=== PATIENT | female | born 1950 | race Caucasian/White ===

== ENCOUNTER 2020-11-01 17:09 | Emergency (ER) | payer MEDICARE, OTHER ==
[~2020-11-01] VITALS: Ht 165.1 cm; Wt 105.1 kg
--- NOTE | 2020-11-01 17:19 | ED Dyspnea ---
General Stated Complaint: SOA History of Present Illness Date Seen by Provider: Nov 01, 2020 Time Seen by Provider: 17:14 Initial Comments 69-year-old female presents with pain along her diaphragm/chest wall. Patient reports that she has COPD and has been having some dyspnea symptoms for about a month. That she was seen 2 days ago by her primary care and started on Levaquin so today is day 3. Along with steroids for COPD. She used inhaler couple hours ago. That she has significant pain when she takes a deep breath. Little bit of chest pressure. Wheezing. No reports of fever. She has had Covid vaccine x2. Allergies and Home Medications Allergies Coded Allergies: No Known Drug Allergies (Unverified , 11/01/20) Home Medications Albuterol Sulfate 1 Puff Puff, 2 PUFF IH Q4H, (Reported) 1 PUFF = 90 MCG Bupropion HCl 150 Mg Tab.er.24h, 150 MG PO DAILY, (Reported) Citalopram Hydrobromide 40 Mg Tablet, 40 MG PO DAILY, (Reported) Levofloxacin 500 Mg Tablet, 500 MG PO DAILY, (Reported) Lisinopril/Hydrochlorothiazide 1 Each Tablet, 1 TAB PO DAILY, (Reported) Simvastatin 40 Mg Tablet, 40 MG PO DAILY, (Reported) Patient Home Medication List Home Medication List Reviewed: Yes Review of Systems Review of Systems Constitutional: see HPI; No fever Respiratory: cough, short of breath Cardiovascular: chest pain; No palpitations Gastrointestinal: No abdominal pain, No nausea, No vomiting Musculoskeletal: no symptoms reported Skin: no symptoms reported Psychiatric/Neurological: No Symptoms Reported Endocrine: No Symptoms Reported Hematologic/Lymphatic: No Symptoms Reported Past Niwyddv-Irumfg-Ghlqrz Hx Past Med/Social Hx: Reviewed Nursing Past Med/Soc Hx Physical Exam Vital Signs Vital Signs - First Documented 11/01/20 17:10 Temp 37.1 Pulse 65 Resp 20 B/P (MAP) 149/89 (109) Pulse Ox 97 O2 Delivery Room Air Capillary Refill : Height, Weight, BMI Height: '" Weight: lbs. oz. 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 Norm as Tested Skin: Diaphoresis Focused Exam Lactate Level 11/01/20 18:05: Lactic Acid Level 1.35 Lactic Acid Level Laboratory Tests Test 11/01/20 18:05 Lactic Acid Level 1.35 MMOL/L (0.50-2.00) Progress/Results/Core Measures Results/Orders Lab Results Laboratory Tests Test 11/01/20 17:20 11/01/20 18:05 Range/Units White Blood Count 22.4 H 4.3-11.0 10^3/uL Red Blood Count 5.28 4.35-5.85 10^6/uL Hemoglobin 16.0 11.5-16.0 G/DL Hematocrit 46 35-52 % Mean Corpuscular Volume 88 80-99 FL Mean Corpuscular Hemoglobin 30 25-34 PG Mean Corpuscular Hemoglobin Concent 35 32-36 G/DL Red Cell Distribution Width 14.1 10.0-14.5 % Platelet Count 256 130-400 10^3/uL Mean Platelet Volume 10.0 7.4-10.4 FL Immature Granulocyte % (Auto) 0 % Neutrophils (%) (Auto) 69 42-75 % Lymphocytes (%) (Auto) 23 12-44 % Monocytes (%) (Auto) 7 0-12 % Eosinophils (%) (Auto) 1 0-10 % Basophils (%) (Auto) 0 0-10 % Neutrophils # (Auto) 15.4 H 1.8-7.8 X 10^3 Lymphocytes # (Auto) 5.2 H 1.0-4.0 X 10^3 Monocytes # (Auto) 1.5 H 0.0-1.0 X 10^3 Eosinophils # (Auto) 0.2 0.0-0.3 10^3/uL Basophils # (Auto) 0.0 0.0-0.1 10^3/uL Immature Granulocyte # (Auto) 0.1 0.0-0.1 10^3/uL Neutrophils % (Manual) 69 % Lymphocytes % (Manual) 26 % Monocytes % (Manual) 4 % Eosinophils % (Manual) 0 % Basophils % (Manual) 1 % Band Neutrophils 0 % Sodium Level 139 135-145 MMOL/L Potassium Level 3.8 3.6-5.0 MMOL/L Chloride Level 103 98-107 MMOL/L Carbon Dioxide Level 24 21-32 MMOL/L Anion Gap 12 5-14 MMOL/L Blood Urea Nitrogen 23 H 7-18 MG/DL Creatinine 1.17 0.60-1.30 MG/DL Estimat Glomerular Filtration Rate 46 BUN/Creatinine Ratio 20 Glucose Level 149 H 70-105 MG/DL Calcium Level 9.4 8.5-10.1 MG/DL Corrected Calcium 9.1 8.5-10.1 MG/DL Magnesium Level 2.1 1.6-2.4 MG/DL Total Bilirubin 0.5 0.1-1.0 MG/DL Aspartate Amino Transf (AST/SGOT) 30 5-34 U/L Alanine Aminotransferase (ALT/SGPT) 20 0-55 U/L Alkaline Phosphatase 121 40-136 U/L Troponin I < 0.30 <0.30 NG/ML Pro-B-Type Natriuretic Peptide 163.0 H <75.0 PG/ML Total Protein 7.3 6.4-8.2 GM/DL Albumin 4.4 3.2-4.5 GM/DL Urine Color YELLOW Urine Clarity SLT CLOUDY Urine pH 6.0 5-9 Urine Specific [place] >=1.030 1.016-1.022 Urine Protein TRACE H NEGATIVE Urine Glucose (UA) NEGATIVE NEGATIVE Urine Ketones TRACE H NEGATIVE Urine Nitrite NEGATIVE NEGATIVE Urine Bilirubin 1+ H NEGATIVE Urine Urobilinogen 0.2 < = 1.0 MG/DL Urine Leukocyte Esterase 2+ H NEGATIVE Urine RBC (Auto) NEGATIVE NEGATIVE Urine RBC NONE /HPF Urine WBC 25-50 H /HPF Urine Squamous Epithelial Cells 5-10 /HPF Urine Crystals NONE /LPF Urine Bacteria TRACE /HPF Urine Casts PRESENT /LPF Urine Hyaline Casts RARE /LPF Urine Mucus SMALL H /LPF Urine Culture Indicated YES Lactic Acid Level 1.35 0.50-2.00 MMOL/L My Orders Orders - DOUGHERTY,DEANNA L DO Chest Pa/Lat (2 View) (11/01/20 17:20) Cbc With Automated Diff (11/01/20 17:20) Comprehensive Metabolic Panel (11/01/20 17:20) Magnesium (11/01/20 17:20) Probnp Fs (11/01/20 17:20) Albuterol/Ipra Inhalation Soln (Duoneb I (11/01/20 17:30) Svn Small Volume Nebulizer (11/01/20 17:20) Troponin I Fs (11/01/20 17:20) Ekg Tracing (11/01/20 17:20) Manual Differential (11/01/20 17:20) Lactic Acid Analyzer (11/01/20 18:03) Ua Culture If Indicated (11/01/20 18:03) Procalcitonin (Pct) (11/01/20 18:06) Ketorolac Injection (Toradol Injection) (11/01/20 18:06) Urine Culture (11/01/20 18:05) Ceftriaxone For Iv Use (Rocephin For I (11/01/20 18:45) Medications Given in ED Current Medications Medications Dose Ordered Sig/Chase Route Start Time Stop Time Status Last Admin Dose Admin Albuterol/ Ipratropium 3 ml ONCE ONCE INH 11/01/20 17:30 11/01/20 17:31 DC 11/01/20 17:25 3 ML Ceftriaxone Sodium 1000 mg/ Sterile Water 10 ml @ 200 mls/hr ONCE ONCE IV 11/01/20 18:45 11/01/20 18:47 DC 11/01/20 18:47 200 MLS/HR Vital Signs/I&O 11/01/20 17:10 Temp 37.1 Pulse 65 Resp 20 B/P (MAP) 149/89 (109) Pulse Ox 97 O2 Delivery Room Air Progress Progress Note : Time: 18:55 Progress Note Patient's breathing is improved with the DuoNeb. She is currently on Levaquin, steroids. She has elevated white count that is likely related to steroids along with a urinary tract infection. The Levaquin being broad-spectrum should cover for the UTI. Patient is on day 3 of a 10-day course. Patient stable and will be discharged home. I recommend she follow-up with her primary care provider after the weekend on Thursday for recheck of her symptoms. She should return to the ER as needed Initial ECG Impression Date: Nov 01, 2020 Initial ECG Impression Time: 17:17 Initial ECG Rate: 58 Initial ECG Rhythm: Normal Sinus Initial ECG Impression: Nonspecific Changes Diagnostic Imaging Diagonstic Imaging: Xray Plain Films/CT/US/NM/MRI: chest Comments [facility] [place], [place] NAME: JOCE BARGERValdez Mina [facility] REC#: [id number] PT STATUS: REG ER : 1950 PHYSICIAN: DEANNA DOUGHERTY DO ADMIT DATE: 11/01/20/ER FS Draft Date of Exam:11/01/20 CHEST PA/LAT (2 VIEW) INDICATION: Shortness of breath and history of COPD. COMPARISON: No prior examinations are available for comparison. FINDINGS: Heart size is normal. There is some air trapping, compatible with COPD. There is no pleural effusion, pneumothorax, or pneumonia. Mediastinum is unremarkable. IMPRESSION: 1. COPD. 2. No acute cardiopulmonary abnormality. Departure Impression Primary Impression: Urinary tract infection Qualified Codes: N30.00 - Acute cystitis without hematuria Additional Impression: COPD exacerbation Disposition: HOME, SELF-CARE Condition: Stable Departure-Patient Inst. Referrals: LOLITA FLORES MD (PCP/Family) Primary Care Physician Patient Instructions: COPD Exacerbation, Adult ED, How to Use Your Metered Dose Inhaler (Adults), Urinary Tract Infections in Adults Add. Discharge Instructions: Follow-up with your primary care provider on Thursday Return to the ER as needed Tylenol or ibuprofen as needed for fever or pain. Drink plenty of fluids DEANNA DOUGHERTY DO Nov 01, 2020 17:19
[2020-11-01 17:30] LABS: HEMATOCRIT 46 % (35-52); MEAN CORPUSCULAR HEMOGLOBIN 30 PG (25-34); MEAN CORPUSCULAR HGB CONC 35 G/DL (32-36); MEAN CORPUSCULAR VOLUME 88 FL (80-99); PLATELET COUNT 256 10^3/uL (130-400); WHITE BLOOD COUNT 22.4 10^3/uL (4.3-11.0)
[2020-11-01] MEDS ORDERED: RT-ALBUTEROL/IPRATROPIUM 3 ML (DUONEB) VIAL INH ONE (17:30)
[2020-11-01 17:31] LABS: BASOPHILS % (AUTO) 0 % (0-10); EOSINOPHILS % (AUTO) 1 % (0-10); LYMPHOCYTES % (AUTO) 23 % (12-44); MONOCYTES % (AUTO) 7 % (0-12); NEUTROPHILS % (AUTO) 69 % (42-75)
[2020-11-01 17:33] LABS: EOSINOPHILS # (AUTO) 0.2 10^3/uL (0.0-0.3); LYMPHOCYTES # (AUTO) 5.2 X 10^3 (1.0-4.0); MONOCYTES # (AUTO) 1.5 X 10^3 (0.0-1.0); NEUTROPHILS # (AUTO) 15.4 X 10^3 (1.8-7.8)
--- NOTE | 2020-11-01 17:41 | Diagnostic Imaging Report ---
INDICATION: Shortness of breath and history of COPD. COMPARISON: No prior examinations are available for comparison. FINDINGS: Heart size is normal. There is some air trapping, compatible with COPD. There is no pleural effusion, pneumothorax, or pneumonia. Mediastinum is unremarkable. IMPRESSION: 1. COPD. 2. No acute cardiopulmonary abnormality. Dictated by: Dictated on workstation # [id number]
[2020-11-01 17:47] LABS: BAND NEUTROPHILS 0 %; BASOPHILS % (MANUAL) 1 %; EOSINOPHILS % (MANUAL) 0 %; LYMPHOCYTES % (MANUAL) 26 %; MONOCYTES % (MANUAL) 4 %; NEUTROPHILS % (MANUAL) 69 %
[2020-11-01 18:00] LABS: ALANINE AMINOTRANSFERASE 20 U/L (0-55); ALKALINE PHOSPHATASE 121 U/L (40-136); BILIRUBIN,TOTAL 0.5 MG/DL (0.1-1.0); BUN/CREATININE RATIO 20; CALCIUM 9.4 MG/DL (8.5-10.1); CARBON DIOXIDE 24 MMOL/L (21-32); CHLORIDE 103 MMOL/L (98-107); CREATININE SERUM 1.17 MG/DL (0.60-1.30); GFR ESTIMATED 46; GLUCOSE 149 MG/DL (70-105); MAGNESIUM 2.1 MG/DL (1.6-2.4); POTASSIUM 3.8 MMOL/L (3.6-5.0); SODIUM 139 MMOL/L (135-145)
[2020-11-01 18:01] LABS: ALBUMIN 4.4 GM/DL (3.2-4.5); TOTAL PROTEIN 7.3 GM/DL (6.4-8.2)
[2020-11-01] MEDS ORDERED: KETOROLAC 30 MG/ML VIAL IVP STA (18:06)
[2020-11-01 18:27] LABS: COLOR,URINE YELLOW
[2020-11-01 18:28] LABS: CLARITY,URINE SLT CLOUDY
[2020-11-01 18:34] LABS: GLUCOSE, URINE (UA) NEGATIVE (NEGATIVE); PROTEIN,URINE TRACE (NEGATIVE)
[2020-11-01 18:35] LABS: BACTERIA,URINE TRACE /HPF; BILIRUBIN,URINE 1+ (NEGATIVE); KETONES,URINE TRACE (NEGATIVE); LEUKOCYTE ESTERASE ,URINE 2+ (NEGATIVE); NITRITE,URINE NEGATIVE (NEGATIVE); WBC,URINE 25-50 /HPF
[2020-11-01 18:36] LABS: HYALINE CASTS, URINE RARE /LPF
[2020-11-01] MEDS ORDERED: LEVO500T80 PO (18:41)
[2020-11-01] MEDS ORDERED: Advair (18:41)
[2020-11-01] MEDS ORDERED: LISI1TAB46 PO (18:41)
[2020-11-01] MEDS ORDERED: SIMV40TA25 PO (18:41)
[2020-11-01] MEDS ORDERED: CITA40TA11 PO (18:41)
[2020-11-01] MEDS ORDERED: BUPR150T24 PO (18:41)
[2020-11-01] MEDS ORDERED: RT-ALBUINH IH (18:41)
[2020-11-01] MEDS ORDERED: cefTRIAXone FOR IV USE 1,000 MG in WATER (STERILE) FOR INJECTION 10 ML IV ONE (18:45)
[2020-11-01 19:00] VITALS: BP 125/71
== END 2020-11-01 19:00 | disposition home or self-care (01) ==
LOC: ER FS 17:11
DX: J44.1 Chronic obstructive pulmonary disease with (acute) exacerbation (principal); N30.00 Acute cystitis without hematuria
CPT/HCPCS: 36415; 71046; 80053; 81000; 83605; 83735; 83880; 84145; 84484; 85007; 85027; 87088; 93005; 94640

== ENCOUNTER 2021-03-20 05:31 | Outpatient (CLI) | payer MEDICARE, OTHER ==
[~2021-03-20] VITALS: Ht 165.1 cm; Wt 104.5 kg
[~2021-03-20 05:31] MED LIST: Advair; BUPR150T24 PO; CITA40TA11 PO; LEVO500T80 PO; LISI1TAB46 PO; RT-ALBUINH IH; SIMV40TA25 PO
[2021-03-20] MEDS ORDERED: IBUP-1779 PO (09:57)
[2021-03-20] MEDS ORDERED: ALBU2.5V4 INH (09:57)
[2021-03-20] MEDS ORDERED: CETI10TA17 PO (09:57)
== END 2021-03-20 10:18 ==
LOC: PREOP 05:31
PROVIDERS: ATTEND Orthopaedic Surgery
DX: Z01.818 Encounter for other preprocedural examination (principal)

== ENCOUNTER 2021-03-27 07:52 | Day surgery (SDC) | payer MEDICARE, OTHER ==
--- NOTE | 2021-03-19 13:57 | HISTORY AND PHYSICAL ---
DATE OF SERVICE: ADMISSION HISTORY AND PHYSICAL This will be for outpatient surgery on 03/27/2021 for right knee arthroscopy. HISTORY OF PRESENT ILLNESS: The patient is a 70-year-old female with progressively worsening right knee pain. She underwent an MRI, which shows posterior horn medial and lateral meniscus tears. She has undergone treatment with injections with only temporary relief of her symptoms. Due to functional impairment and failure to improve with conservative measures, the patient elected to proceed with surgical intervention. REVIEW OF SYSTEMS: No chest pain, no shortness of breath, no dysuria. PAST MEDICAL HISTORY: COPD, asthma, hypertension, peripheral artery disease, type 2 diabetes, chronic kidney disease, depression. PAST SURGICAL HISTORY: Bilateral carpal tunnel, right knee arthroscopy, hysterectomy. FAMILY HISTORY: Noncontributory. PRIMARY CARE PROVIDER: Dr. Germain. MEDICATIONS: Ibuprofen, bupropion, simvastatin, ProAir, lisinopril, citalopram, cetirizine, albuterol, and Advair. ALLERGIES: No known drug allergies. SOCIAL HISTORY: The patient denies tobacco or alcohol use. PHYSICAL EXAMINATION: GENERAL: The patient is well-developed, well-nourished, in no acute distress. HEENT: Normocephalic, atraumatic. Pupils are equal, round and reactive to light. Oropharynx is clear. NECK: Supple, no lymphadenopathy. LUNGS: Clear to auscultation bilaterally. HEART: Regular rate and rhythm. ABDOMEN: Soft, nontender, nondistended. EXTREMITIES: The right knee demonstrates tenderness along the posteromedial joint line. She has pain posteriorly with hyperflexion with Jada's. She has a slight effusion, no erythema or warmth. Range of motion is 0/130. The patient ambulates with an antalgic gait. 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 PLAN: Right knee arthroscopy with partial medial and lateral meniscectomies and chondroplasty. The risks, benefits, options, ramifications and recovery were discussed at length with the patient. She understands and wishes to proceed. Job ID: [id number] DocumentID: [id number] Dictated Date: 03/19/2021 12:38:42 Insurance Case Manager Date: 03/19/2021 12:57:31 Dictated By: LYNDON ROGERS MD
[2021-03-27] VITALS (10 sets, daily range): BP systolic 106–160; BP diastolic 48–79
[~2021-03-27] VITALS: Ht 165.1 cm; Wt 104.5 kg
[~2021-03-27 07:52] MED LIST changes: +ALBU2.5V4 INH; +CETI10TA17 PO; +HYDROcodone/APAP 7.5 MG/325 MG (LORTAB, LORCET PLUS) TABLET PO PRN; +IBUP-1779 PO
[2021-03-27] MEDS ORDERED: morphine PF (DURAMORPH) 10 MG/10 ML AMP ONE (08:21)
[2021-03-27] MEDS ORDERED: BUPIVACAINE 0.25% 30 ML (SENSORCAINE) VIAL ONE (08:21)
[2021-03-27] MEDS ORDERED: LIDOCAINE PF 2% 5 ML (XYLOCAINE) VIAL ONE (08:29)
[2021-03-27] MEDS ORDERED: proPOfol 200 MG/20 ML (DIPRIVAN) VIAL IV ONE (08:29)
[2021-03-27] MEDS ORDERED: ONDANSETRON 4 MG/2 ML (SDV) Z0FRAN ONE (08:29)
[2021-03-27] MEDS ORDERED: SEVOFLURANE (ULTANE) 15 ML INHAL SOLN ONE ×2 (08:29→09:44)
[2021-03-27] MEDS ORDERED: ceFAZolin INJECTION 1,000 MG in WATER (STERILE) FOR INJECTION 10 ML IV ONE (08:30)
[2021-03-27] MEDS ORDERED: MIDAZOLAM 2 MG/2 ML (VERSED) VIAL ONE (08:30)
[2021-03-27] MEDS ORDERED: fentaNYL INJ 100 MCG/2 ML AMP ONE (08:30)
[2021-03-27] MEDS: LACTATED RINGERS 1,000 ML IV PRN ×2 (08:55→10:25)
--- NOTE | 2021-03-27 09:35 | Progress Note-Pre Operative ---
Pre-Operative Progress Note H&P Reviewed The H&P was reviewed, patient examined and no changes noted. Date Seen by Provider: Mar 27, 2021 Time Seen by Provider: 09:25 Date H&P Reviewed: Mar 27, 2021 Time H&P Reviewed: 07:11 Pre-Operative Diagnosis: right knee medial and lateral meniscus tear and chondromalacia LYNDON ROGERS MD Mar 27, 2021 09:35
--- NOTE | 2021-03-27 09:36 | Progress Note-Post Operative ---
Post-Operative Progess Note Surgeon (s)/Packing Machine Tender (s) Surgeon LYNDON ROGERS MD Packing Machine Tender: Jaya Sanchez Pre-Operative Diagnosis right knee medial and lateral meniscus tear and chondromalacia Post-Operative Diagnosis right knee lateral meniscus tear and chondromalacia of the medial femoral condyle, medial tibial plateau, lateral tibial plateau and patella Procedure & Operative Findings Date of Procedure 03/27/21 Procedure Performed/Findings right knee arthroscopic partial lateral meniscectomy and chondroplasty of of the medial femoral condyle, medial tibial plateau, lateral tibial plateau and patella Anesthesia Type GETA Estimated Blood Loss Estimated blood loss (mL): minimal Specimens/Packing Specimens Removed none Packing: none LYNDON ROGERS MD Mar 27, 2021 09:36
--- NOTE | 2021-03-27 10:26 | Anesthesia-General Post-Op ---
General Patient Condition Mental Status/LOC: Same as Preop Cardiovascular: Satisfactory Nausea/Vomiting: Absent Respiratory: Satisfactory Pain: Controlled Complications: Absent Post Op Complications Complications None Follow Up Care/Instructions Patient Instructions None needed. Anesthesia/Patient Condition Patient Condition Patient is doing well, no complaints, stable vital signs, no apparent adverse anesthesia problems. No complications reported per nursing. EVELYN HANNAH CRNA Mar 27, 2021 10:26
[2021-03-27] MEDS ORDERED: fentaNYL INJ 100 MCG/2 ML AMP IVP ONE (10:30)
[2021-03-27] MEDS ORDERED: ONDANSETRON 4 MG/2 ML (SDV) Z0FRAN IVP PRN (10:30)
[2021-03-27] MEDS ORDERED: MEPERIDINE (DEMEROL) INJ 50 MG/ML IVP ONE (10:30)
[2021-03-27] MEDS ORDERED: morphine INJ 10 MG/ML 1ML (SYR OR VIAL) IVP ONE (10:30)
[2021-03-27] MEDS ORDERED: morphine INJ 10 MG/ML 1ML (SYR OR VIAL) ONE (10:39)
--- NOTE | 2021-03-27 13:13 | Physical Therapy Ortho Eval ---
PT Orthopedic Evaluation Type of Surgery Knee Scope Prior Level of Function Current Living Status: Significant Other Locomotion (Upon Admit): Independent Established Durable Medical Eq: Crutches Subjective Subjective Patient rates pain at 3/10 currently. Reports "Its not too bad." Entry Into Home: Stairs With Railing Steps Into Home: 2 ROM ROM: WFL, except focal deficit Strength Strength: Gen Weak,No Focal Deficit Transfer SCALE: Activities may be completed with or without assistive devices. 6-Hdhzshkyej-qwtpoup completes the activity by him/herself with no assistance from a helper. 5-Set-up or Clean-up Assistance-helper sets up or cleans up; patient completes activity. [place] assists only prior to or following the activity. 4-Supervision or Touching Assistance-helper provides verbal cues and/or touching/steadying and/or contact guard assistance as patient completes activity. Assistance may be provided throughout the activity or intermittently. 3-Partial/Moderate Assistance-helper does LESS THAN HALF the effort. [place] lifts, holds or supports trunk or limbs, but provides less than half the effort. 2-Substantial/Maximal Assistance-helper does MORE THAN HALF the effort. [place] lifts or holds trunk or limbs and provides more than half the effort. 7-Wyxbvhjsp-sdukfr does ALL the effort. Patient does none of the effort to complete the activity. Or, the assistance of 2 or more helpers is required for the patient to complete the activity. If activity was not attempted, code reason: 7-Patient Refused. 9-Not Applicable-not attempted and the patient did not perform the activity before the current illness, exacerbation or injury. 10-Not Attempted due to Environmental Limitations-(lack of equipment, weather restraints, etc.). 88-Not Attempted due to Medical Conditions or Safety Concerns. Transfers (B, C, W/C) (QC): 5 Gait Gait Assistive Device: Crutches Right Lower Extremity: Right Weight Bearing Status RLE: Weight Bearing/Tolerated Gait (QC): 4 Distance: 30 Gait Level of Assist: 4 Treatment Rendered Treatment: Therapeutic Exercises, Gait Train Exercise Instruction: Quad Sets, Straight Leg Raise, Heel Slides, Ankle Pumps Written HEP dispensed Assessment/Goals Goal Time Frame: 1 Visit Understands HEP: Yes Safe Ambulation: Yes Plan Treatment Plan: Discharge Time Time In: 1150 Time Out: 1215 Total Billed Treatment Time: 25 Billed Treatment Time Visit, Lorri Madsen JOHN A PT Mar 27, 2021 13:12
--- NOTE | 2021-03-27 14:35 | OPERATIVE REPORT ---
DATE OF SERVICE: 03/27/2021 PREOPERATIVE DIAGNOSES: 1. Right knee medial meniscus tear. 2. Right knee lateral meniscus tear. 3. Right knee chondromalacia of the medial femoral condyle. 4. Right knee chondromalacia of the patella. POSTOPERATIVE DIAGNOSES: 1. Right knee lateral meniscus tear. 2. Right knee chondromalacia of the medial femoral condyle. 3. Right knee chondromalacia of the medial tibial plateau. 4. Right knee chondromalacia of the lateral tibial plateau. 5. Right knee chondromalacia of the patella. PROCEDURES PERFORMED: 1. Right knee arthroscopic partial lateral meniscectomy. 2. Right knee arthroscopic chondroplasty of the medial femoral condyle. 3. Right knee arthroscopic chondroplasty of the medial tibial plateau. 4. Right knee arthroscopic chondroplasty of the lateral tibial plateau. 5. Right knee arthroscopic chondroplasty of the patella. SURGEON: Tal Rogers MD. PROCESS SAFETY ENGINEER: Jaya Sanchez, who assisted throughout the procedure and closed the incisions. ANESTHESIA: General endotracheal by Jaya Tobin CRNA. TOURNIQUET TIME: Not applicable. ESTIMATED BLOOD LOSS: Minimal. DRAINS: None. COMPLICATIONS: None. POSTOPERATIVE PLAN: Routine arthroscopy protocol. The patient was transferred to the recovery room awake and in stable condition. STATEMENT OF MEDICAL NECESSITY: The patient is a 70-year-old female with complaints of right medial and lateral knee pain, catching, locking and swelling. An MRI revealed evidence of a medial and lateral meniscus tear. She tried rest, activity modifications, and anti-inflammatories without relief. Due to functional impairment and failure to improve with conservative measures, the patient elected to proceed with surgical intervention. Examination under anesthesia revealed range of motion of 0/0/130 with negative Ivan, negative anterior and posterior drawer. No varus or valgus laxity, negative pivot shift. ARTHROSCOPIC FINDINGS: The patella demonstrated grade II chondral flaps centrally in a 10 x 10 area. The trochlea demonstrated no gross chondral abnormalities. Medial and lateral gutters were clear. The ACL and PCL were intact. The lateral compartment demonstrated complex tear of the posterior horn of the lateral meniscus involving approximately one-half of the posterior horn. In addition, there were grade III chondral flaps of the central portion of the tibial plateau in a 10 x 10 area. The medial compartment demonstrated grade II to III chondral flaps of the central portion of the tibial plateau in a 10 x 10 area and over the central portion of the femoral condyle in a 10 x 10 area. PROCEDURE IN DETAIL: After the risks and benefits of the procedure were discussed and questions were answered, informed consent was signed and placed on chart, the operative site was confirmed in the preoperative holding area initialed by the surgeon. The patient was then transferred to the operating room. After adequate levels of general endotracheal anesthetic were obtained, a timeout was called, confirming the operative site. Examination under anesthesia was performed with the above findings noted. The right lower extremity was prepped and draped in the usual sterile fashion. The knee joint was injected with 60 mL of fluid and standard inferolateral portal was placed for the arthroscope. Under direct visualization, inferior medial portal was created. The menisci and cruciates were carefully probed with the above findings noted. The unstable chondral flaps on the patella were debrided with a shaver back to a stable edge. The scope was then redirected into the lateral compartment and unstable chondral flaps on the lateral tibial plateau were debrided with a shaver back to a stable edge and the posterior horn of the lateral meniscus was debrided with a biter and a shaver back to a stable edge. Scope was then redirected into the medial compartment and the unstable chondral flaps of the medial femoral condyle and medial tibial plateau were debrided with a shaver back to a stable edge. Knee was copiously irrigated and portal sites were closed with 4-0 nylon in a simple interrupted fashion. Knee joint was injected with Duramorph. The port sites were infiltrated with plain Marcaine. A soft dressing was applied. The patient was transferred to the recovery room awake and in a stable condition. Job ID: [id number] DocumentID: [id number] Dictated Date: 03/27/2021 10:25:26 Education Faculty Member Date: 03/27/2021 14:34:08 Dictated By: TAL ROGERS MD
== END 2021-03-27 13:20 | disposition home or self-care (01) ==
LOC: SDC 07:52
PROVIDERS: ATTEND Orthopaedic Surgery
DX: S83.241A Other tear of medial meniscus, current injury, right knee, initial encounter (principal); S83.281A Other tear of lateral meniscus, current injury, right knee, initial encounter; M22.41 Chondromalacia patellae, right knee; E11.22 Type 2 diabetes mellitus with diabetic chronic kidney disease; E11.51 Type 2 diabetes mellitus with diabetic peripheral angiopathy without gangrene; F32.9 Major depressive disorder, single episode, unspecified; I12.9 Hypertensive chronic kidney disease with stage 1 through stage 4 chronic kidney disease, or unspecified chronic kidney disease; N18.9 Chronic kidney disease, unspecified; J44.9 Chronic obstructive pulmonary disease, unspecified; Z79.899 Other long term (current) drug therapy; Z79.1 Long term (current) use of non-steroidal anti-inflammatories (NSAID); Z98.890 Other specified postprocedural states
CPT/HCPCS: 82947; 87081

== ENCOUNTER 2021-06-06 05:42 | Outpatient (CLI) | payer MEDICARE, OTHER ==
[~2021-06-06] VITALS: Ht 165.6 cm; Wt 107.5 kg
[~2021-06-06 05:42] MED LIST changes: -HYDROcodone/APAP 7.5 MG/325 MG (LORTAB, LORCET PLUS) TABLET PO PRN
== END 2021-06-06 12:48 | disposition home or self-care (01) ==
LOC: PREOP 05:42
PROVIDERS: ATTEND Surgery
DX: Z01.818 Encounter for other preprocedural examination (principal)

== ENCOUNTER 2021-06-10 11:00 | Day surgery (SDC) | payer MEDICARE, OTHER ==
[~2021-06-10] VITALS: Ht 162.6 cm; Wt 107.5 kg
[2021-06-10] VITALS (7 sets, daily range): BP systolic 117–163; BP diastolic 60–67
[2021-06-10] MEDS ORDERED: GLYCOPYRROLATE 0.2 MG/ML (ROBINUL) 2 ML VIAL IJ ONE (11:01)
[2021-06-10] MEDS ORDERED: LACTATED RINGERS 1,000 ML IV STA (11:03)
[2021-06-10] MEDS ORDERED: LACTATED RINGERS 1,000 ML IV ONE (11:08)
--- NOTE | 2021-06-10 11:15 | Progress Note-Pre Operative ---
Pre-Operative Progress Note H&P Reviewed The H&P was reviewed, patient examined and no changes noted. Time Seen by Provider: 11:14 Date H&P Reviewed: Jun 10, 2021 Time H&P Reviewed: 11:14 Pre-Operative Diagnosis: VIVIANA Luciano DO Jun 10, 2021 11:15
[2021-06-10] MEDS ORDERED: PROPOFOL INJECTION 50 ML IV ONE (11:38)
--- NOTE | 2021-06-10 13:06 | Progress Note-Post Operative ---
Post-Operative Progess Note Surgeon (s)/Inspector Aligning (s) Surgeon VIVIANA THIBODEAUX DO Inspector Aligning: none Pre-Operative Diagnosis Screening Post-Operative Diagnosis Polyps int hemorrhoids Procedure & Operative Findings Date of Procedure 06/10/21 Procedure Performed/Findings Colonoscopy with snare polypectomy PROCEDURE NOTE: After informed consent was obtained, the patient was brought to the endoscopy suite, placed in bed in left lateral decubitus position. She was administered IV sedation by the CONTACT ACID PLANT OPERATOR HELPER who then monitored her vitals the entire time, heart rate, blood pressure and pulse ox and the scope was inserted, pushed all the way to about 150 cm and pushed into the cecum, took a picture of appendiceal orifice and noted the ileo-cecal valve. Then slowly withdrew the scope insufflating to look circumferentially at the chawla starting in the cecum, up the ascending colon to the hepatic flexure, then down the transverse colon, splenic flexure, into the descending colon and finally down into the sigmoid. In the sigmoid saw a polyp and elected to do a snare polypectomy and then into the rectum where I saw another polyp and did another snare. Finally into rectal vault and retroflexed the scope. Took picture of the internal hemorrhoids. I did a CJ and felt a slight weakness of anterior wall but did not appreciate a rectocele. The patient tolerated the procedure. She was recovered in endoscopy suite. Anesthesia Type IV sedation by CONTACT ACID PLANT OPERATOR HELPER Estimated Blood Loss Estimated blood loss (mL): scant Specimens/Packing Specimens Removed sigmoid polyp rectal polyp VIVIANA THIBODEAUX DO Jun 10, 2021 13:06
--- NOTE | 2021-06-10 13:09 | Endoscopy Discharge Instruct ---
Endo Procedure/Findings Findings 1.: Polyp 2.: Internal Hemorrhoids Discharge Instructions - Activity: You might feel a little sleepy until tomorrow. This is due to the medicine you received to relax you. Until tomorrow, you should: NOT drive a car, operate machinery or power tools. NOT drink any alcoholic beverages. NOT make any important decisions or sign importortant papers. Do not return to work until tomorrow, unless otherwise instructed. Resume previous activities tomorrow. Diet: Start by taking liquids. If you tolerate liquids, advance to solid food. 1.: Colonscopy in 5 years Notify Physician - If you experience excessive bleeding, unusual abdominal pain, fever, or chest pain, contact your doctor immediately. VIVIANA THIBODEAUX DO Jun 10, 2021 13:09
--- NOTE | 2021-06-12 08:23 | Anesthesia-General Post-Op ---
MAC Patient Condition Mental Status/LOC: Same as Preop Cardiovascular: Satisfactory Nausea/Vomiting: Absent Respiratory: Satisfactory Pain: Controlled Complications: Absent Post Op Complications Complications None Follow Up Care/Instructions Patient Instructions None needed. Anesthesiology Discharge Order Discharge Order Patient was seen and doing well after the procedure, no complaints, stable vital signs, no apparent adverse anesthesia problems. KASSIE SHETH DO Jun 12, 2021 08:22
== END 2021-06-10 14:05 | disposition home or self-care (01) ==
LOC: ENDO 11:00
PROVIDERS: ATTEND Surgery
DX: Z12.11 Encounter for screening for malignant neoplasm of colon (principal); K63.5 Polyp of colon; K62.1 Rectal polyp; K64.8 Other hemorrhoids; E78.00 Pure hypercholesterolemia, unspecified; J44.9 Chronic obstructive pulmonary disease, unspecified; E11.9 Type 2 diabetes mellitus without complications; I10 Essential (primary) hypertension; E78.5 Hyperlipidemia, unspecified; F32.A Depression, unspecified; Z87.891 Personal history of nicotine dependence; Z79.899 Other long term (current) drug therapy